=== PATIENT | male | born 1980 | race Caucasian/White ===

== ENCOUNTER → 2017-06-04 | Outpatient (CLI) | payer OTHER ==
[~2017-06-04] MED LIST: GADOBUTROL 10 ML VIAL IVP ONE
== END ==
LOC: FIMAGING 12:24
PROVIDERS: ATTEND Psychiatry & Neurology Neurology
DX: J01.90 Acute sinusitis, unspecified (principal); M50.31 Other cervical disc degeneration, high cervical region; M25.78 Osteophyte, vertebrae; M48.03 Spinal stenosis, cervicothoracic region
CPT/HCPCS: A9585